=== PATIENT | female | born 1970 | race Caucasian/White ===

== ENCOUNTER → 2020-10-05 08:39 | Outpatient (CLI) | payer MEDICARE, MEDICAID, SELFPAY | PROVIDERS: Family Provider Family Medicine; PCP Family Medicine; Referring Provider Family Medicine; Visit Provider Family Medicine | DX: I87.2 Venous insufficiency (chronic) (peripheral) (principal); L97.821 Non-pressure chronic ulcer of other part of left lower leg limited to breakdown of skin; I89.0 Lymphedema, not elsewhere classified; L03.116 Cellulitis of left lower limb; R60.0 Localized edema | CPT/HCPCS: 11042; 87070; 87075; 87077; 87186; 87205; 99203; 99213 ==